=== PATIENT | female | born 1980 | race Caucasian/White ===

== ENCOUNTER 2016-10-31 23:37 | Emergency (ER) | payer OTHER ==
[~2016-10-31] VITALS: Ht 162.6 cm; Wt 88.5 kg
[2016-10-31 23:48] VITALS: BP 130/85
--- NOTE | 2016-11-01 00:17 | PHYS DOC ---
Past Medical History Past Medical History: No Pertinent History Past Surgical History: No Surgical History Alcohol Use: None Drug Use: None Adult General Chief Complaint Chief Complaint: HEADACHE HPI HPI Patient is a 36 year old female who presents with complaint of left-sided head pressure and ear pain. Patient states her symptoms started earlier this morning and have progressively worsened. Patient denies any associated fevers. Patient has had mild congestion. Patient states that the pain is mostly above her left eye. Patient states that she has had mild thick rhinorrhea. Patient denies sore throat. Patient rates her pain currently as 7 out of 10. Patient denies history of migraine headaches. Patient states that she took ibuprofen, Aleve, and Tylenol at home with no relief in symptoms. The patient states that her pain also seems to worsen in her left forehead with change in position, especially when bending forward. Review of Systems Review of Systems Constitutional: Denies fever or chills [] Eyes: Denies change in visual acuity, redness, or eye pain [] HENT: Nasal congestion, left ear pain, denies sore throat [] Respiratory: Denies cough or shortness of breath [] Cardiovascular: Denies chest pain or edema [] GI: Denies abdominal pain, nausea, vomiting, bloody stools or diarrhea [] : Denies dysuria or hematuria [] Musculoskeletal: Denies back pain or joint pain [] Integument: Denies rash or skin lesions [] Neurologic: Headache, denies focal weakness or sensory changes [] Current Medications Current Medications Current Medications Medications (Trade) Dose Ordered Sig/Jimmy Start Time Stop Time Status Last Admin Dose Admin Acetaminophen/ Hydrocodone Bitart (Lortab 7.5/325) 1 tab 1X ONCE 11/01/16 00:30 11/01/16 00:31 DC 11/01/16 00:25 1 TAB Oxymetazoline HCl (Afrin) 2 spray 1X ONCE 11/01/16 00:30 11/01/16 00:31 DC 11/01/16 00:25 2 SPRAY Allergies Allergies Allergies Coded Allergies Type Severity Reaction Last Updated Verified No Known Drug Allergies 10/31/16 No Physical Exam Physical Exam Constitutional: Well developed, well nourished, no acute distress, non-toxic appearance. [] HENT: Normocephalic, atraumatic, left TM with clear middle ear effusion, nonerythematous, right TM normal, oropharynx moist, no oral exudates, nasal mucosal edema with thick rhinorrhea bilaterally, tenderness palpation over left frontal sinus, no temporal artery tenderness. [] Eyes: PERRLA, EOMI, conjunctiva normal, no discharge. [] Neck: Normal range of motion, no tenderness, supple, no stridor. [] Cardiovascular:Heart rate regular rhythm, no murmur [] Lungs & Thorax: Bilateral breath sounds clear to auscultation [] Abdomen: Bowel sounds normal, soft, no tenderness, no masses, no pulsatile masses. [] Skin: Warm, dry, no erythema, no rash. [] Back: No tenderness, no CVA tenderness. [] Extremities: No tenderness, no cyanosis, no clubbing, ROM intact, no edema. [] Neurologic: Alert and oriented X 3, normal motor function, normal sensory function, no focal deficits noted. [] Current Patient Data Vital Signs Vital Signs Date Time Temp Pulse Resp B/P (MAP) Pulse Ox O2 Delivery O2 Flow Rate FiO2 10/31/16 23:48 98.2 91 18 99 Room Air 98.2 EKG EKG Not performed [] Radiology/Procedures Radiology/Procedures Not performed [] Course & Med Decision Making Course & Med Decision Making Pertinent Labs and Imaging studies reviewed. (See chart for details) The patient's symptoms appear consistent with left frontal sinusitis. The patient's symptoms do not appear to be consistent with a bacterial cause for her sinusitis. The patient was treated with Frederic and Afrin in the emergency department. Recommended use of fluticasone nasal spray for daily use. Frederic for outpatient treatment of pain. Advised follow-up in one week with primary doctor for reevaluation if symptoms not improving and return to emergency department for any worsening symptoms. Patient voiced understanding and in agreement with treatment plan. Dragon Disclaimer Dragon Disclaimer This electronic medical record was generated, in whole or in part, using a voice recognition dictation system. Departure Departure Impression: Primary Impression: Sinusitis Disposition: HOME, SELF-CARE Condition: IMPROVED Referrals: NO PCP (PCP) Patient Instructions: Sinusitis Additional Instructions: Follow-up with your primary doctor in 1 week if symptoms are not improving. Return to the emergency department for any worsening symptoms. Scripts Ondansetron (ZOFRAN ODT) 4 Mg Tab.rapdis 1 TAB SL Q8HRS Y for NAUSEA/VOMITING, #20 TAB Prov: MERRILL MARTEL MD 11/01/16 Hydrocodone/Apap 5-325 (NORCO 5-325 TABLET) 1 Each Tablet 1-2 TAB PO Q4-6HRS Y for PAIN, #20 TAB Prov: MERRILL MARTEL MD 11/01/16 Problem Qualifiers Primary Impression: Sinusitis Sinusitis location: frontal Chronicity: acute Recurrence: non-recurrent Qualified Codes: J01.10 - Acute frontal sinusitis, unspecified MERRILL MARTEL MD Nov 01, 2016 00:17
[2016-11-01] MEDS ORDERED: ONDA4TAB10 SL (00:25)
[2016-11-01] MEDS ORDERED: HYDR-971 PO (00:25)
[2016-11-01] MEDS ORDERED: OXYMETAZOLINE 0.05% NASAL SPRAY 30ML BOTTLE. NS ONE (00:30)
[2016-11-01] MEDS ORDERED: HYDROcodone/APAP 7.5/325MG 1 TAB TABLET PO ONE (00:30)
== END 2016-11-01 00:40 | disposition home or self-care (01) ==
LOC: ER 23:37
DX: J32.9 Chronic sinusitis, unspecified (principal)
CPT/HCPCS: 99283

== ENCOUNTER 2016-11-11 18:17 | Emergency (ER) | payer OTHER ==
[~2016-11-11] VITALS: Ht 162.6 cm; Wt 88.5 kg
[~2016-11-11 18:17] MED LIST: HYDR-971 PO; ONDA4TAB10 SL
[2016-11-11 18:35] VITALS: BP 119/67
[2016-11-11] MEDS ORDERED: MUPI15CR TP (18:51)
[2016-11-11] MEDS ORDERED: SULF1TAB24 PO (18:51)
--- NOTE | 2016-11-11 18:51 | PHYS DOC ---
Past Medical History Past Medical History: No Pertinent History Past Surgical History: No Surgical History Alcohol Use: None Drug Use: None Adult General Chief Complaint Chief Complaint: SKIN PROBLEM HPI HPI Patient is a 36 year old female who presents with cellulitis of the left upper extremity that began 2 days ago after she sustained a laceration to the left upper extremity. Patient denies any drainage from the area. She works at [employer] Review of Systems Review of Systems Constitutional: Denies fever or chills [] Eyes: Denies change in visual acuity, redness, or eye pain [] Musculoskeletal: Denies back pain or joint pain [] Integument: cellulitis of the left upper extremity Neurologic: Denies headache, focal weakness or sensory changes [] Endocrine: Denies polyuria or polydipsia [] Allergies Allergies Allergies Coded Allergies Type Severity Reaction Last Updated Verified No Known Drug Allergies 10/31/16 No Physical Exam Physical Exam Constitutional: Well developed, well nourished, no acute distress, non-toxic appearance. [] Skin: Left triceps area with a straight line of cellulitis consistent with a previous laceration approximately 5 cm long. The area is warm to touch. There is another tiny area of cellulitis approximately 1 cm long beside this area. The area is warm and tender to touch. No drainage from both areas. Back: No tenderness, no CVA tenderness. [] Extremities: No tenderness, no cyanosis, no clubbing, ROM intact, no edema. [] Neurologic: Alert and oriented X 3, normal motor function, normal sensory function, no focal deficits noted. [] Psychologic: Affect normal, judgement normal, mood normal. [] Current Patient Data Vital Signs Vital Signs Date Time Temp Pulse Resp B/P (MAP) Pulse Ox O2 Delivery O2 Flow Rate FiO2 11/11/16 18:35 98.5 89 20 98 Room Air 98.5 EKG EKG [] Radiology/Procedures Radiology/Procedures [] Course & Med Decision Making Course & Med Decision Making Pertinent Labs and Imaging studies reviewed. (See chart for details) Patient has cellulitis to the left upper extremity from a laceration that occurred 2 days ago. Her tetanus is up-to-date. She'll be discharged with Bactrim for 10 days as well as Bactroban. She was instructed to keep the area clean and dry and follow-up with her own doctor in 1-2 weeks. Dragon Disclaimer Dragon Disclaimer This electronic medical record was generated, in whole or in part, using a voice recognition dictation system. Departure Departure Impression: Primary Impression: Cellulitis of left upper extremity Disposition: 01 HOME, SELF-CARE Condition: STABLE Referrals: NO PCP (PCP) Follow-up with your doctor in 1-2 weeks. Patient Instructions: Cellulitis Additional Instructions: You were seen with cellulitis of the left upper extremity. Keep the area clean and dry. Use the medications provided as ordered ensure you complete the oral antibiotics. Follow up with your doctor in one week Scripts Mupirocin Calcium (BACTROBAN CREAM) 15 Gm Cream..g. 1 KATHY TP TID, #30 GM Prov: LEON CAMPOS APRN 11/11/16 Sulfamethoxazole/Trimethoprim (BACTRIM DS TABLET) 1 Each Tablet 1 TAB PO BID, #20 TAB Prov: LEON CAMPOS APRN 11/11/16 LEON CAMPOS APRN Nov 11, 2016 18:51
== END 2016-11-11 19:04 | disposition home or self-care (01) ==
LOC: ER 18:17
DX: L03.114 Cellulitis of left upper limb (principal)
CPT/HCPCS: 99283